=== PATIENT | female | born 1990 | race African-American/Black ===

== ENCOUNTER 2018-07-30 15:44 | Emergency (ER) | payer OTHER ==
[2018-07-30 16:29] VITALS: BP 151/94
--- NOTE | 2018-08-06 14:33 | UC ---
Respiratory Complaint HPI - HPI Summary HPI Summary: 2 wk hx of cough and yesterday started w/ sore throat. denies sick contacts. does smoke. she mentions she was tx'd w/ augmentin 1 mo ago. - History of Current Complaint Chief Complaint: UCRespiratory Stated Complaint: SORE THROAT Time Seen by Provider: 07/30/18 16:26 Hx Last Menstrual Period: "my periods are irregular" Pain Intensity: 6 Pain Scale Used: 0-10 Numeric Aggravating Factors: Nothing Alleviating Factors: Nothing Associated Signs And Symptoms: Negative: Wheezing - Allergies/Home Medications Allergies/Adverse Reactions: Allergies Allergy/AdvReac Type Severity Reaction Status Date / Time No Known Allergies Allergy Verified 07/30/18 16:24 Home Medications: Home Medications Bupropion XL* [Wellbutrin XL *] 150 mg PO DAILY 07/30/18 [History Confirmed ] Methimazole TAB* [Tapazole TAB*] 10 mg PO DAILY 07/30/18 [History Confirmed ] Metoprolol Succinate XL TAB* [Toprol XL TAB*] 75 mg PO DAILY 07/30/18 [History Confirmed 07/30/18] PMH/Surg Hx/FS Hx/Imm Hx Endocrine History: Thyroid Disease Cardiovascular History: Hypertension - Surgical History Surgical History: Yes Surgery Procedure, Year, and Place: - Family History Known Family History: Positive: Non-Contributory - Social History Alcohol Use: Occasionally Substance Use Type: None Smoking Status (MU): Light Every Day Tobacco Smoker Type: Cigarettes Amount Used/How Often: 3/4 cigs/day Review of Systems All Other Systems Reviewed And Are Negative: Yes Constitutional: Negative: Fever Skin: Negative: Rash ENT: Positive: Sore Throat, Sinus Congestion Respiratory: Positive: Cough - dry. Negative: Shortness Of Breath, Other - denies wheezing Musculoskeletal: Negative: Myalgia Neurological: Negative: Headache Physical Exam Triage Information Reviewed: Yes Appearance: Well-Appearing Vital Signs: Initial Vital Signs Temp 98.1 F 07/30/18 16:25 Pulse 105 07/30/18 16:25 Resp 19 07/30/18 16:25 BP 151/94 07/30/18 16:25 Pulse Ox 98 07/30/18 16:25 Vital Signs Reviewed: Yes Eyes: Positive: Conjunctiva Clear ENT: Positive: Pharynx normal, TMs normal Neck: Positive: Supple, Nontender, No Lymphadenopathy Respiratory Exam: Normal Cardiovascular Exam: Normal Neurological: Positive: Alert Skin: Negative: Rashes Respiratory Course/Dx - Course Course Of Treatment: Cough x 2 wks in a smoker w/ one day of sore throat. exam unremarkable. we disc possibility that smoking is making worse. Of note she was tx'd w/ augmentin for sinusitis 1 mo. ago. BP slightly elevated but she will talk w/ pcp about this. - Differential Dx/Diagnosis Differential Diagnosis/HQI/PQRI: Asthma, Bronchitis, Lower Resp Infection Provider Diagnosis: Bronchitis Discharge - Sign-Out/Discharge Documenting (check all that apply): Patient Departure All imaging exams completed and their final reports reviewed: No Studies - Discharge Plan Condition: Good Disposition: HOME Prescriptions: Albuterol HFA INHALER* [Ventolin HFA Inhaler*] 2 puff INH Q4H PRN #1 mdi PRN Reason: Cough Patient Education Materials: How to Stop Smoking (ED) Forms: *Work Release Referrals: Elsa Peck [Primary Care Provider] - Additional Instructions: PLease follow up with primary care if not improving. - Billing Disposition and Condition Condition: GOOD Disposition: Home
== END 2018-07-30 17:08 | disposition home or self-care (01) ==
LOC: UCCORT 15:44
DX: J40 Bronchitis, not specified as acute or chronic (principal); R09.81 Nasal congestion; E07.9 Disorder of thyroid, unspecified; I10 Essential (primary) hypertension; F17.210 Nicotine dependence, cigarettes, uncomplicated
CPT/HCPCS: 99212; G0463